=== PATIENT | male | born 1980 | race Caucasian/White ===

== ENCOUNTER 2018-08-07 00:08 | Emergency (ER) | END 2018-08-07 01:55 | disposition home or self-care (01) ==

== ENCOUNTER 2018-08-23 18:44 | Emergency (ER) | payer SELFPAY ==
[~2018-08-23] VITALS: Wt 71.6 kg
[2018-08-23 18:49] VITALS: BP 121/71; PULSE 81; RESP 19
--- NOTE | 2018-08-23 19:52 | ERD ---
ER Documentation Chief Complaint Chief Complaint bib self, cc: here for suture removal, x 2 weeks ago HPI 38-year-old male is here for removal of sutures from his upper lip that were placed 2 weeks ago by myself. He has no complaints. No bleeding or drainage. No new injuries. ROS All systems reviewed and are negative except as per history of present illness. Allergies Allergies: Coded Allergies: No Known Allergy (Unverified , 08/07/18) PMhx/Soc Medical and Surgical Hx: pt denies Medical Hx, pt denies Surgical Hx Hx Alcohol Use: No Hx Substance Use: No Hx Tobacco Use: No Smoking Status: Never smoker FmHx Family History: No diabetes Physical Exam Vitals Vital Signs Date Temp Pulse Resp B/P (MAP) Pulse Ox O2 O2 Flow FiO2 Time Delivery Rate 08/23/18 98.3 81 19 121/71 100 18:49 (88) Physical Exam Const: No acute distress Head: Atraumatic Eyes: Normal Conjunctiva Resp: Clear to auscultation bilaterally Cardio: Regular rate and rhythm, no murmurs Skin: Upper lip laceration healing with [address], no active bleeding or drainage Procedures/MDM This 38-year-old male is here for suture removal. The sutures were removed without complication. Patient counseled regarding my diagnostic impression and care plan. Prior to discharge all questions answered. Pt agrees with treatment plan and understands strict return precautions. Pt is instructed to follow up with primary care provider within 24-48 hours. Precautionary instructions provided including instructions to return to the ER if not improving or for any worsening or changing symptoms or concerns. Departure Diagnosis: Primary Impression: Visit for suture removal Condition: Stable Patient Instructions: Suture Removal, No Complication Additional Instructions: Call your primary care doctor TOMORROW for an appointment during the next 1-2 days.See the doctor sooner or return here if your condition worsens before your appointment time. SERJIO STEINER PA-C Aug 23, 2018 19:52
== END 2018-08-23 19:58 | disposition home or self-care (01) ==
LOC: FTE 18:44
DX: Z48.02 Encounter for removal of sutures (principal)
CPT/HCPCS: 99281